=== PATIENT | female | born 1950 | race Caucasian/White ===

== ENCOUNTER 2018-06-09 10:55 | Emergency (ER) | payer MEDICARE, BC ==
[2018-06-09] MEDS ORDERED: Sodium Chloride 0.9% 10 ML Syringe FLUSH PRN (11:28)
--- NOTE | 2018-06-09 12:19 | CR ---
Chest: Portable view of the chest was obtained. Comparison: No previous study. Heart size and mediastinum are within normal limits for portable technique. Lungs are clear. Bony structures are grossly intact. Surgical clips are seen from prior cholecystectomy. Impression: 1. Nothing acute is seen on portable chest x-ray. Diagnostic code #2
--- NOTE | 2018-06-09 13:00 | EDM.PDOC ---
ED HPI GENERAL MEDICAL PROBLEM - General Chief Complaint: Cardiovascular Problem Stated Complaint: SENT BY [facility] DENSON ABNORMAL EKG Time Seen by Provider: 06/09/18 11:07 Source of Information: Reports: Patient History Limitations: Reports: No Limitations - History of Present Illness INITIAL COMMENTS - FREE TEXT/NARRATIVE: The patient presents with palpitations and lightheadedness. She said this started on . She did not feel well and she felt like her heart was pounding fast. She laid down and rested. She felt a little better. She did have some heart burn a few days ago and the lightheadedness has persisted. She denies fever, chills, cough, congestion, runny nose, chest pain, shortness of breath, abdominal pain, nausea or vomiting. She has no history of heart problems. Onset: Gradual Duration: Day(s): (5) Location: Reports: Chest Quality: Reports: Other (Heartburn) Severity: Mild Improves with: Reports: None Worsens with: Reports: None Associated Symptoms: Reports: Chest Pain (Heart burn). Denies: Cough, Fever/ Chills, Headaches, Nausea/Vomiting, Shortness of Breath - Related Data Allergies Allergy/AdvReac Type Severity Reaction Status Date / Time No Known Allergies Allergy Verified 06/09/18 11:13 Home Meds: Home Meds . [No Known Home Meds] 06/09/18 [History] Past Medical History HEENT History: Reports: Cataract, Impaired Vision Gastrointestinal History: Reports: Cholelithiasis [employer] History: Reports: Musculoskeletal History: Reports: Osteoporosis Psychiatric History: Reports: Depression - Past Surgical History HEENT Surgical History: Reports: Cataract Surgery, Oral Surgery GI Surgical History: Reports: Cholecystectomy Female Surgical History: Reports: Hysterectomy, Salpingo-Oophorectomy Social & Family History - Family History Cardiac: Reports: Bypass, ID, Stent Other Cardiac Family History: brother-mother open heart, father young unsure 65 years - Tobacco Use Smoking Status *Q: Former Smoker Packs/Tins Daily: 0.2 Used Tobacco, but Quit: Yes Month/Year Tobacco Last Used: 1959 - Caffeine Use Caffeine Use: Reports: Coffee - Recreational Drug Use Recreational Drug Use: No ED ROS GENERAL - Review of Systems Review Of Systems: See Below Constitutional: Reports: No Symptoms HEENT: Reports: No Symptoms Respiratory: Reports: No Symptoms Cardiovascular: Reports: Chest Pain (Heart burn), Lightheadedness Endocrine: Reports: No Symptoms GI/Abdominal: Reports: No Symptoms ED EXAM, GENERAL - Physical Exam Exam: See Below Exam Limited By: No Limitations General Appearance: Alert, No Apparent Distress Ears: Normal External Exam Nose: Normal Inspection Head: Atraumatic, Normocephalic Neck: Normal Inspection Respiratory/Chest: No Respiratory Distress, Lungs Clear, Normal Breath Sounds Cardiovascular: Regular Rate, Rhythm, No Edema, No Murmur GI/Abdominal: Soft, Non-Tender, No Organomegaly, No Mass Back Exam: Normal Inspection Extremities: Normal Inspection Neurological: Alert, Oriented, No Motor/Sensory Deficits EKG INTERPRETATION EKG Date: 06/09/18 Time: 11:10 Rhythm: NSR Rate (Beats/Min): 63 [place]: Normal P-Wave: Present QRS: Normal ST-T: Normal QT: Normal Course - Vital Signs Last Recorded V/S: Last Vital Signs Temp 96.6 F 06/09/18 11:09 Pulse 66 06/09/18 11:09 Resp 12 06/09/18 11:09 BP 157/74 H 06/09/18 11:09 Pulse Ox 100 06/09/18 11:09 - Orders/Labs/Meds Orders: Active Orders 24 hr Category Date Time Status Cardiac Monitoring [RC] . DIRECTED Care 06/09/18 11:28 Active EKG Documentation Completion [RC] STAT Care 06/09/18 11:29 Active Peripheral IV Care [RC] . DIRECTED Care 06/09/18 11:29 Active Sodium Chloride 0.9% [Saline Flush] Med 06/09/18 11:28 Active 10 ml FLUSH ASDIRECTED PRN Peripheral IV Insertion Adult [OM.PC] Stat Oth 06/09/18 11:28 Ordered Medication Orders Sodium Chloride (Saline Flush) 10 ml FLUSH ASDIRECTED PRN PRN Reason: Keep Vein Open Last Admin: 06/09/18 11:34 Dose: 10 ml Labs: Laboratory Tests 06/09/18 06/09/18 Range/Units 11:10 11:10 WBC 5.83 (3.98-10.04) K/mm3 RBC 4.96 (3.98-5.22) M/mm3 Hgb 13.9 (11.2-15.7) gm/L Hct 42.2 (34.1-44.9) % MCV 85.1 (79.4-94.8) fl MCH 28.0 (25.6-32.2) pg MCHC 32.9 (32.2-35.5) g/dl RDW Std Deviation 45.4 (36.4-46.3) fL Plt Count 294 (182-369) K/mm3 MPV 8.8 L (9.4-12.3) fl Neut % (Auto) 60.4 (34.0-71.1) % Lymph % (Auto) 28.1 (19.3-51.7) % [place] % (Auto) 9.3 (4.7-12.5) % Eos % (Auto) 1.7 (0.7-5.8) Baso % (Auto) 0.5 (0.1-1.2) % Neut # (Auto) 3.52 (1.56-6.13) K/mm3 Lymph # (Auto) 1.64 (1.18-3.74) K/mm3 [place] # (Auto) 0.54 H (0.24-0.36) K/mm3 Eos # (Auto) 0.10 (0.04-0.36) K/mm3 Baso # (Auto) 0.03 (0.01-0.08) K/mm3 Sodium 141 (136-145) mEq/L Potassium 4.6 (3.5-5.1) mEq/L Chloride 108 H (98-107) mEq/L Carbon Dioxide 26 (21-32) mEq/L Anion Gap 11.6 (5-15) BUN 17 (7-18) mg/dL Creatinine 0.8 (0.55-1.02) mg/dL Est Cr Clr Drug Dosing 57.31 mL/min Estimated GFR (MDRD) > 60 (>60) mL/min BUN/Creatinine Ratio 21.3 H (14-18) Glucose 89 (80-115) mg/dL Calcium 8.3 L (8.5-10.1) mg/dL Total Bilirubin 0.5 (0.2-1.0) mg/dL AST 18 (15-37) U/L ALT 26 (14-59) U/L Alkaline Phosphatase 91 (46-116) U/L Troponin I < 0.017 (0.00-0.056) ng/mL Total Protein 7.2 (6.4-8.2) g/dl Albumin 3.8 (3.4-5.0) g/dl Globulin 3.4 gm/dL Albumin/Globulin Ratio 1.1 (1-2) TSH 3rd Generation 2.195 (0.358-3.74) uIU/mL Meds: Medications Generic Name Dose Route Start Last Admin Trade Name Freq PRN Reason Stop Dose Admin Sodium Chloride 10 ml 06/09/18 11:28 06/09/18 11:34 Saline Flush FLUSH 10 ml ASDIRECTED PRN Administration Keep Vein Open - Re-Assessments/Exams Free Text/Narrative Re-Assessment/Exam: 06/09/18 12:59 I ordered an IV saline lock, EKG, CXR, and labs. Her EKG shows a NSR with no acute changes. Her CXR looks good. Her CBC and CMP look good. Her troponin is negative. I have ordered a hoter monitor for 48 hours to see if we can catch any palpitations. Departure - Departure Time of Disposition: 13:00 Disposition: Home, Self-Care 01 Condition: Good Clinical Impression: Palpitations, Lightheadedness Referrals: Gaudencio Quintanilla MD [Primary Care Provider] - Additional Instructions: Drink plenty of fluids. Wear the holter monitor for 48 hours. Follow up with your provider within a week. Please return if you are worse. - My Orders Last 24 Hours: My Active Orders 06/09/18 11:28 Cardiac Monitoring [RC] . DIRECTED Sodium Chloride 0.9% [Saline Flush] 10 ml FLUSH ASDIRECTED PRN Peripheral IV Insertion Adult [OM.PC] Stat 06/09/18 11:29 EKG Documentation Completion [RC] STAT Peripheral IV Care [RC] . DIRECTED - Assessment/Plan Last 24 Hours: My Active Orders 06/09/18 11:28 Cardiac Monitoring [RC] . DIRECTED Sodium Chloride 0.9% [Saline Flush] 10 ml FLUSH ASDIRECTED PRN Peripheral IV Insertion Adult [OM.PC] Stat 06/09/18 11:29 EKG Documentation Completion [RC] STAT Peripheral IV Care [RC] . DIRECTED
== END 2018-06-09 14:00 | disposition home or self-care (01) ==
LOC: JD.ED 10:55
DX: R00.0 Tachycardia, unspecified (principal); R00.2 Palpitations; Z87.891 Personal history of nicotine dependence
CPT/HCPCS: 36415; 71045; 71045-26; 80053; 84443; 84484; 85025; 93005; 93010; 93225; 93226; 99284; 99285-25

== ENCOUNTER 2019-03-18 06:03 | Day surgery (SDC) | payer MEDICARE, BC ==
[~2019-03-18 06:03] MED LIST: Acetaminophen 325 MG Tab PO SCH; Lidocaine 1%/Sod Bicarbonate in NS 8.4% 1 ML Syringe IDERM PRN; Pregabalin 25 MG Cap PO SCH; Sodium Chloride 0.9% 10 ML Syringe FLUSH PRN; oxyCODONE ER 10 MG TAB.ER PO SCH
[2019-03-18] MEDS: Lactated Ringers 1,000 ML IV SCH ×2 (06:30→09:43)
[2019-03-18] MEDS ORDERED: Scopolamine 1.5 MG Transdermal Patch TOP ONE (06:51)
--- NOTE | 2019-03-18 06:57 | PCM.PREANE ---
Preanesthetic Assessment - Anesthesia/Transfusion/Family Hx Anesthesia History: Prior Anesthesia Without Reaction Family History of Anesthesia Reaction: No Transfusion History: No Prior Transfusion(s) - Review of Systems General: No Symptoms, Other (anemia) Pulmonary: No Symptoms Cardiovascular: No Symptoms, Other (HTN) Gastrointestinal: No Symptoms Neurological: Other (vertigo, 2 weeks ago) Other: Reports: Thyroid Problems, Depression - Physical Assessment NPO Status Date: 03/17/19 NPO Status Time: 21:00 Vital Signs: Last Vital Signs Temp 36.2 C 03/18/19 06:10 Pulse 72 03/18/19 06:10 Resp 16 03/18/19 06:10 BP 154/78 H 03/18/19 06:10 Pulse Ox 95 03/18/19 06:10 Weight: 84 kg ASA Class: 2 Mental Status: Alert & Oriented x3 Airway Class: Mallampati = 2 Dentition: Reports: Normal Dentition Thyro-Mental Finger Breadths: 3 Mouth Opening Finger Breadths: 3 ROM/Head Extension: Full Lungs: Clear to Auscultation, Normal Respiratory Effort Cardiovascular: Regular Rate, Regular Rhythm - Lab Values: Laboratory Last Values MRSA (PCR) Negative 03/06/19 10:50 - Allergies Allergies/Adverse Reactions: Allergies Allergy/AdvReac Type Severity Reaction Status Date / Time No Known Allergies Allergy Verified 03/17/19 10:47 - Blood Blood Available: No Product(s) Available: None - Anesthesia Plan Pre-Op Medication Ordered: None - Acknowledgements Anesthesia Type Planned: Spinal Pt an Appropriate Candidate for the Planned Anesthesia: Yes Alternatives and Risks of Anesthesia Discussed w Pt/Guardian: Yes Pt/Guardian Understands and Agrees with Anesthesia Plan: Yes PreAnesthesia Questionnaire HEENT History: Reports: Cataract, Hard of Hearing, Impaired Vision, Other (See Below) Other HEENT History: hearing loss, has glasses and hearing aids Cardiovascular History: Reports: High Cholesterol, Hypertension Respiratory History: Reports: None Gastrointestinal History: Reports: Cholelithiasis, Colon Polyp Genitourinary History: Reports: Other (See Below) Other Genitourinary History: bladder cystocele, MACHINIST SET UP History: Reports: Musculoskeletal History: Reports: Osteoarthritis, Osteoporosis Neurological History: Reports: Vertigo Psychiatric History: Reports: Depression Endocrine/Metabolic History: Reports: Hypothyroidism Hematologic History: Reports: Anemia Immunologic History: Reports: None Oncologic (Cancer) History: Reports: None Dermatologic History: Reports: None - Past Surgical History Head Surgeries/Procedures: Reports: None HEENT Surgical History: Reports: Cataract Surgery, Oral Surgery Cardiovascular Surgical History: Reports: None Respiratory Surgical History: Reports: None GI Surgical History: Reports: Bariatric Procedure, Cholecystectomy, Colonoscopy Female Surgical History: Reports: Breast Reconstruction, Hysterectomy, Salpingo-Oophorectomy Endocrine Surgical History: Reports: None Neurological Surgical History: Reports: None Musculoskeletal Surgical History: Reports: None Oncologic Surgical History: Reports: None Dermatological Surgical History: Reports: None - SUBSTANCE USE Smoking Status *Q: Never Smoker Recreational Drug Use History: No - HOME MEDS Home Medications: Home Meds Cholecalciferol (Vitamin D3) [Vitamin D3] 5,000 unit OP DAILY 03/17/19 [History] Levothyroxine [Synthroid] 50 mcg PO DAILY 03/17/19 [History] Losartan Potassium 50 mg PO DAILY 03/17/19 [History] Sertraline HCl 100 mg PO DAILY 03/17/19 [History] - CURRENT (IN HOUSE) MEDS Current Meds: Current Medications Acetaminophen (Tylenol) 975 mg PO ONETIME MIGDALIA Stop: 03/18/19 12:00 Last Admin: 03/18/19 06:20 Dose: 975 mg Lactated Ringer's (Ringers, Lactated) 1,000 mls @ 125 mls/hr IV ASDIRECTED MIGDALIA Stop: 03/18/19 23:00 Lidocaine/Sodium Bicarbonate (Buffered Lidocaine 1% In Ns 8.4%) 0.25 ml IDERM ONETIME PRN PRN Reason: Prior to IV Start Stop: 03/18/19 18:00 Oxycodone HCl (Oxycontin) 10 mg PO ONETIME MIGDALIA Stop: 03/18/19 12:00 Last Admin: 03/18/19 06:20 Dose: 10 mg Pregabalin (Lyrica) 50 mg PO ONETIME MIGDALIA Stop: 03/18/19 12:00 Last Admin: 03/18/19 06:20 Dose: 50 mg Scopolamine (Transderm-Scop) 1.5 mg TOP ONETIME ONE Stop: 03/18/19 06:52 Sodium Chloride (Saline Flush) 10 ml FLUSH ASDIRECTED PRN PRN Reason: Keep Vein Open Stop: 03/18/19 18:00
[2019-03-18] MEDS ORDERED: Cyclobenzaprine 10 MG Tab PO PRN (07:06)
[2019-03-18] MEDS ORDERED: ceFAZolin 1 GM Vial ONE (07:06)
[2019-03-18] MEDS ORDERED: fentaNYL 100 MCG/2 ML SDV ONE (07:06)
[2019-03-18] MEDS ORDERED: Midazolam 1 MG/ML 2 ML SDV ONE (07:06)
[2019-03-18] MEDS ORDERED: Propofol 200 MG/20 ML SDV ONE (07:06)
[2019-03-18] MEDS ORDERED: Ondansetron 4 MG/2 ML SDV IVPUSH PRN ×2 (07:08→09:03)
[2019-03-18] MEDS ORDERED: Sennosides 8.6 MG Tab PO PRN (07:08)
[2019-03-18] MEDS ORDERED: Bisacodyl 5 MG Tab PO PRN (07:08)
[2019-03-18] MEDS ORDERED: Magnesium Hydroxide 400 MG/5 ML Susp 30 ML Cup PO PRN (07:08)
[2019-03-18] MEDS ORDERED: Naloxone 0.4 MG/ML SDV IVPUSH PRN (07:08)
[2019-03-18] MEDS ORDERED: Morphine 2 MG/ML Syringe IVPUSH PRN (07:08)
[2019-03-18] MEDS ORDERED: Ropivacaine 0.5% 5 MG/ML 30 ML SDV ONE (07:45)
[2019-03-18] MEDS ORDERED: EPINEPHrine 1 MG/1 ML Amp ONE (07:45)
[2019-03-18] MEDS ORDERED: ePHEDrine/Normal Saline 25 MG/5 ML Syringe ONE (08:02)
[2019-03-18] MEDS ORDERED: Lactated Ringers 1,000 ML ONE (08:03)
[2019-03-18] MEDS ORDERED: Phenylephrine/Normal Saline 100 MCG/ML 10 ML Syringe ONE (08:04)
[2019-03-18] MEDS: ceFAZolin 1 GM Vial ONE ×2 (08:17→08:23)
[2019-03-18] MEDS: Iodine/Sodium Iodide 2% Tincture 30 ML Bottle ONE ×2 (08:17→08:20)
[2019-03-18] MEDS: Morphine 8 MG, EPINEPHrine 0.3 MG, Cefuroxime 750 MG, Ketorolac 30 MG, Sodium Chloride ... ONE ×15 (08:19→13:36)
[2019-03-18] MEDS: Bupivacaine 0.25% 10 ML SDV ONE ×4 (08:20→08:51)
[2019-03-18] MEDS: Vancomycin 1 GM SDV ONE ×2 (08:21→08:30)
[2019-03-18] MEDS: Triamcinolone Acetonide 40 MG/ML 1 ML MDV ONE ×2 (08:21→08:51)
[2019-03-18] MEDS ORDERED: fentaNYL 100 MCG/2 ML SDV IVPUSH PRN (09:03)
--- NOTE | 2019-03-18 09:03 | PCM.POSTAN ---
POST ANESTHESIA ASSESSMENT - MENTAL STATUS Mental Status: Alert, Oriented - VITAL SIGNS Vital Signs: Last Vital Signs Temp 36.2 C 03/18/19 06:10 Pulse 72 03/18/19 06:10 Resp 16 03/18/19 06:10 BP 154/78 H 03/18/19 06:10 Pulse Ox 95 03/18/19 06:10 - RESPIRATORY Respiratory Status: Respiratory Rate WNL, Airway Patent, O2 Saturation Stable, Supplemental Oxygen - CARDIOVASCULAR CV Status: Pulse Rate WNL, Blood Pressure Stable - GASTROINTESTINAL GI Status: No Symptoms - PAIN Pain Score: 0 - POST OP HYDRATION Hydration Status: Adequate & Stable
--- NOTE | 2019-03-18 09:22 | PCM.SN ---
- Free Text/Narrative Note: Right selective femoral nerve block at the adductor canal for post-procedure pain control under US guidance requested by Dr. Dooley. Date:03/18/19 Time Out: 903 Start: 904 End: 910 Chart reviewed. Consent signed. Questions answered. Appropriate monitors applied. Time out performed. Right mid-shaft femur identified with ultrasound, scanning medially of femur, the femoral artery in the adductor canal visualized , and the femoral nerve located laterally to the artery. The skin was prepped lateral to the ultrasound probe with chlorahexadine times two. The 21ga 4 insulated block needle was inserted under direct ultrasound guidance into the adductor canal. With first aspiration blood noted. Needle repositioned. 25mL of 0.5% ropivacaine with 1:200,000 epinephrine was injected circumferentially around the nerve with intermittent negative aspiration noted. Patient tolerated the procedure well. Sterile technique noted along with sterile gloves , mask, and sterile probe cover. See picture on progress note and vital signs on nurses notes. Block completed in PACU. Ted De León CRNA
--- NOTE | 2019-03-18 09:54 | CR ---
Right knee: AP and lateral views of the right knee were obtained. Comparison: No previous knee study. Knee prosthesis is seen. Components are aligned. Underlying bony structures are intact. Soft tissue air is noted from the surgical procedure. Impression: 1. Satisfactory radiographic appearance of recently placed right knee prosthesis. Diagnostic code #2
[2019-03-18] MEDS: Acetaminophen/oxyCODONE 325-5 MG Tab PO PRN ×3 (13:50→22:57)
[2019-03-18] MEDS: ceFAZolin 2 GM in Premix Bag 1 BAG IV SCH ×2 (14:00→22:54)
[2019-03-18] MEDS: Famotidine 20 MG Tab PO SCH (20:54)
[2019-03-18] MEDS: Docusate Sodium 100 MG Cap PO SCH (20:54)
[2019-03-18] MEDS: Ketorolac 15 MG/ML SDV IVPUSH PRN (22:55)
[2019-03-19] MEDS ORDERED: Levothyroxine 50 MCG Tab PO SCH (06:00)
[2019-03-19] MEDS: Ketorolac 15 MG/ML SDV IVPUSH PRN (06:03)
[2019-03-19] MEDS: Acetaminophen/oxyCODONE 325-5 MG Tab PO PRN ×2 (06:04→12:26)
[2019-03-19] MEDS: ceFAZolin 2 GM in Premix Bag 1 BAG IV SCH (06:05)
[2019-03-19] MEDS: Famotidine 20 MG Tab PO SCH (08:41)
[2019-03-19] MEDS: Docusate Sodium 100 MG Cap PO SCH (08:41)
[2019-03-19] MEDS ORDERED: Aspirin 325 MG Tab.EC PO SCH (09:00)
[2019-03-19] MEDS ORDERED: Sertraline 50 MG Tab PO SCH (09:00)
[2019-03-19] MEDS ORDERED: Cholecalciferol (Vitamin D3) 5,000 UNIT Tab PO SCH (09:00)
[2019-03-19] MEDS ORDERED: Losartan 25 MG Tab PO SCH (09:00)
--- NOTE | 2019-03-19 14:00 | PCM48HPAN ---
Post Anesthesia Note - EVALUATION WITHIN 48HRS OF ANESTHETIC Vital Signs in Normal Range: Yes Patient Participated in Evaluation: Yes Respiratory Function Stable: Yes Airway Patent: Yes Cardiovascular Function Stable: Yes Hydration Status Stable: Yes Pain Control Satisfactory: Yes Nausea and Vomiting Control Satisfactory: Yes Mental Status Recovered: Yes Vital Signs: Last Vital Signs Temp 36.6 C 03/19/19 08:39 Pulse 65 03/19/19 09:18 Resp 14 03/19/19 08:39 BP 151/93 H 03/19/19 08:42 Pulse Ox 95 03/19/19 09:18 - COMMENTS/OBSERVATIONS Free Text/Narrative:: Late entry: patient discharged home from extended floor recovery.
--- NOTE | 2019-03-20 10:23 | PCM.SURGPN ---
- General Info Date of Service: 03/19/19 Functional Status: Reports: Pain Controlled, Tolerating Diet, Ambulating, Urinating, Incentive Spirometry - Review of Systems Musculoskeletal: Reports: Other (The pt states she did well with therapies.) - Patient Data Vitals - Most Recent: Last Vital Signs Temp 97.9 F 03/19/19 08:39 Pulse 65 03/19/19 09:18 Resp 14 03/19/19 08:39 BP 151/93 H 03/19/19 08:42 Pulse Ox 95 03/19/19 09:18 Weight - Most Recent: 185 lb 3.013 oz Med Orders - Current: Current Medications Discontinued Medications Acetaminophen (Tylenol) 975 mg PO ONETIME MIGDALIA Stop: 03/18/19 12:00 Last Admin: 03/18/19 06:20 Dose: 975 mg Aspirin (Ecotrin) 325 mg PO BID [facility] Last Admin: 03/19/19 08:41 Dose: 325 mg Bisacodyl (Dulcolax) 5 mg PO DAILY PRN PRN Reason: Constipation Bupivacaine HCl (Sensorcaine-Mpf 0.25%) Confirm Administered Dose 30 ml .ROUTE .STK-MED ONE Stop: 03/18/19 07:07 Last Admin: 03/18/19 08:51 Dose: 4 ml Cefazolin Sodium (Ancef) Confirm Administered Dose 2 gm .ROUTE .STK-MED ONE Stop: 03/18/19 07:07 Last Admin: 03/18/19 08:23 Dose: 2 gm Cefazolin Sodium (Ancef) Confirm Administered Dose 2 gm .ROUTE .STK-MED ONE Stop: 03/18/19 07:07 Cholecalciferol (Vitamin D3) 5,000 unit PO DAILY [facility] Last Admin: 03/19/19 08:42 Dose: 5,000 unit Morphine Sulfate 8 mg/Epinephrine HCl 0.3 mg/Cefuroxime Sodium 750 mg/Ketorolac Tromethamine 30 mg/Sodium Chloride 27.9 ml 0 mg .XX ONETIME ONE Stop: 03/18/19 08:31 Last Admin: 03/18/19 13:36 Dose: Not Given Cyclobenzaprine HCl (Flexeril) 10 mg PO TID PRN PRN Reason: Spasms Last Admin: 03/19/19 08:41 Dose: 10 mg Docusate Sodium (Colace) 100 mg PO BID [facility] Last Admin: 03/19/19 08:41 Dose: 100 mg Ephedrine Sulfate (Ephedrine In Ns) Confirm Administered Dose 25 mg .ROUTE .STK- MED ONE Stop: 03/18/19 08:03 Epinephrine HCl (Adrenalin) Confirm Administered Dose 1 mg .ROUTE .STK-MED ONE Stop: 03/18/19 07:46 Famotidine (Pepcid) 20 mg PO Q12H [facility] Last Admin: 03/19/19 08:41 Dose: 20 mg Fentanyl (Sublimaze) Confirm Administered Dose 100 mcg .ROUTE .STK-MED ONE Stop: 03/18/19 07:07 Fentanyl (Sublimaze) 50 mcg IVPUSH Q5M PRN PRN Reason: pain Stop: 03/18/19 12:00 Lactated Ringer's (Ringers, Lactated) 1,000 mls @ 125 mls/hr IV ASDIRECTED [facility] Stop: 03/18/19 23:00 Last Admin: 03/18/19 09:43 Dose: 125 mls/hr Cefazolin Sodium/Dextrose 2 gm (/ Premix) 50 mls @ 100 mls/hr IV Q8H [facility] Stop: 03/19/19 07:29 Last Admin: 03/19/19 06:05 Dose: 100 mls/hr Lactated Ringer's (Ringers, Lactated) Confirm Administered Dose 1,000 mls @ as directed .ROUTE .STK-MED ONE Stop: 03/18/19 08:04 Iodine (Iodine 2% Mild Tincture) Confirm Administered Dose 30 ml .ROUTE .STK- MED ONE Stop: 03/18/19 07:07 Last Admin: 03/18/19 08:20 Dose: 18 ml Ketorolac Tromethamine (Toradol) 15 mg IVPUSH Q6H PRN PRN Reason: Pain Last Admin: 03/19/19 06:03 Dose: 15 mg Levothyroxine Sodium (Synthroid) 50 mcg PO ACBREAKFAST [facility] Last Admin: 03/19/19 05:40 Dose: 50 mcg Lidocaine/Sodium Bicarbonate (Buffered Lidocaine 1% In Ns 8.4%) 0.25 ml IDERM ONETIME PRN PRN Reason: Prior to IV Start Stop: 03/18/19 18:00 Last Admin: 03/18/19 06:29 Dose: 0.25 ml Losartan Potassium (Cozaar) 50 mg PO DAILY [facility] Last Admin: 03/19/19 08:42 Dose: 50 mg Magnesium Hydroxide (Milk Of Magnesia) 30 ml PO BID PRN PRN Reason: Constipation Midazolam HCl (Versed 1 Mg/Ml) Confirm Administered Dose 2 mg .ROUTE .STK-MED ONE Stop: 03/18/19 07:07 Morphine Sulfate (Morphine) 2 mg IVPUSH Q2H PRN PRN Reason: Breakthrough Pain Naloxone HCl (Narcan) 0.1 mg IVPUSH Q5M PRN PRN Reason: Oversedation Ondansetron HCl (Zofran) 4 mg IVPUSH Q6H PRN PRN Reason: Nausea/Vomiting Ondansetron HCl (Zofran) 4 mg IVPUSH ONETIME PRN PRN Reason: Nausea/Vomiting Stop: 03/18/19 12:00 Oxycodone HCl (Oxycontin) 10 mg PO ONETIME MIGDALIA Stop: 03/18/19 12:00 Last Admin: 03/18/19 06:20 Dose: 10 mg Oxycodone/Acetaminophen (Percocet 325-5 Mg) 1 - 2 tab PO Q4H PRN PRN Reason: Pain Last Admin: 03/19/19 12:26 Dose: 2 tab Phenylephrine HCl (Phenylephrine In Ns 100 Mcg/Ml) Confirm Administered Dose 1 mg .ROUTE .STK-MED ONE Stop: 03/18/19 08:05 Pregabalin (Lyrica) 50 mg PO ONETIME MIGDALIA Stop: 03/18/19 12:00 Last Admin: 03/18/19 06:20 Dose: 50 mg Propofol (Diprivan 20 Ml) Confirm Administered Dose 400 mg .ROUTE .STK-MED ONE Stop: 03/18/19 07:07 Ropivacaine (Naropin 0.5%) Confirm Administered Dose 30 ml .ROUTE .STK-MED ONE Stop: 03/18/19 07:46 Scopolamine (Transderm-Scop) 1.5 mg TOP ONETIME ONE Stop: 03/18/19 06:52 Last Admin: 03/18/19 07:03 Dose: 1.5 mg Senna (Senna) 8.6 mg PO BID PRN PRN Reason: Constipation Sertraline HCl (Zoloft) 100 mg PO DAILY [facility] Last Admin: 03/19/19 08:41 Dose: 100 mg Sodium Chloride (Saline Flush) 10 ml FLUSH ASDIRECTED PRN PRN Reason: Keep Vein Open Stop: 03/18/19 18:00 Tranexamic Acid (Cyklokapron) Confirm Administered Dose 1,000 mg .ROUTE .STK- MED ONE Stop: 03/18/19 07:06 Last Admin: 03/18/19 08:34 Dose: 1,000 mg Triamcinolone Acetonide (Kenalog-40) Confirm Administered Dose 80 mg .ROUTE .STK -MED ONE Stop: 03/18/19 07:06 Last Admin: 03/18/19 08:51 Dose: 80 mg Vancomycin HCl (Vancomycin) Confirm Administered Dose 1 gm .ROUTE .STK-MED ONE Stop: 03/18/19 07:06 Last Admin: 03/18/19 08:30 Dose: 1 gm - Exam Wound/Incisions: Dressing Dry and Intact General: Alert, Cooperative, No Acute Distress Lungs: Normal Respiratory Effort Extremities: Other (NVS intact for BLE. Luciana's negative.) - Problem List Review Problem List Initiated/Reviewed/Updated: Yes - Assessment Assessment (Free Text/Narrative):: POD#1 - right TKA - Plan Plan (Free Text/Narrative):: 1. Hgb 10.4. 2. Pt has met inpt therapy goals. 3. Discharge to home today. 4. Elevated LFTs and pt has been scheduled for f/u with PCP. 5. 325mg ASA PO BID, frequent mobility, TEDs. The pt's case was discussed with Dr. Dooley.
--- NOTE | 2019-03-20 10:26 | PCM.DCSUM1 ---
Discharge Summary - Hospital Course Brief History: Ann is a 68 yo female who underwent left TKA with Dr. Dooley on 03-18-2019. The procedure was completed under spinal anesthesia with MAC. The pt received a post-op adductor canal block. The pt tolerated the procedure well and was admitted to the Medical-Surgical Unit. The pt's Hospital course was remarkable for elevated LFTs. The pt's Hgb on POD#1 was 10.4. On POD#1, 325mg ASA BID was initiated for VTE prophylaxis. SCDs and TEDs were also ordered. A Mepilex dressing was placed at the incision site at the time of surgery and remained clean and dry. The pt participated in P.T. and O.T. and progressed well. The pt was allowed to WBAT. On POD#1, the pt was deemed appropriate to discharge to home with her . The pt will follow-up with her PCP for monitoring of LFTs. - Discharge Data Discharge Date: 03/19/19 Discharge Disposition: Home, Self-Care 01 Condition: Good - Referral to Home Health Primary Care Physician: Gaudencio Quintanilla MD - Patient Summary/Data Consults: Consultations 03/18/19 07:06 OT Evaluation and Treatment [CONS] Routine PT Evaluation and Treatment [CONS] Routine - Patient Instructions Diet: Usual Diet as Tolerated Activity: Apply Ice, As Tolerated, Elevate Extremity, Full Weight Bearing Driving: Do Not Drive Showering/Bathing: May Shower Wound/Incision Care: Keep Operative Site/Wound Site Clean and Dry, Do NOT Change Dressing Notify Provider of: Fever, Increased Pain, Swelling and Redness, Drainage, Nausea and/or Vomiting Other/Special Instructions: Please get up and moving around EVERY HOUR while awake. This helps to prevent blood clots. Please use your walker and have help with mobility as needed. Take a short walk in your home every hour while awake. Please take 325mg Aspirin TWICE daily. The aspirin is being used for blood clot prevention and not for pain management so please do not miss a dose of the medication. You could use a medication like Pepcid and a medication like Prilosec or Nexium to protect your stomach while you are using the aspirin. At home, please complete the exercises that you learned during the Hospital stay. Schedule for physical therapy. Use the pain medication as needed. The medication may cause drowsiness and constipation. Contact your primary care provider for instructions if you are constipated. You may use a stool softener like docusate sodium or Colace 100mg twice daily and/or a laxative like Miralax daily for constipation. Increase your water and fiber intake while you are using the pain medication. Discontinue use of the pain medication as soon as able. Please do not use other medications that may cause drowsiness (other pain medications, anxiety pills, cold medications, sleeping pills, etc) while using the prescription pain medication. Do not use alcohol while using the pain medication. You may use acetaminophen or Tylenol for pain management, however, please ensure you are not using over 4000 mg or 4 grams of acetaminophen per day from all sources. Your pain medication has 325mg of acetaminophen per tablet. At this time, please do not use ibuprofen (Motrin, Advil) or naproxen (Aleve) for pain management as you are using the aspirin. When the aspirin course is completed in 4 to 6 weeks, you could use ibuprofen or naproxen for pain management (if this is allowed by your primary care provider). Wear the CAMI hose during the day and you may remove these at night. Elevate the limb to decrease swelling. Place ice to the area often. Place a towel between your skin and the blue pad. Use the incentive spirometer often. Take deep breaths throughout the day. Please keep the dressing in place until follow-up. Notify the Clinic if the dressing becomes saturated. Increase your protein intake while you are healing. If you have diabetes, please closely monitor your blood sugars and notify your primary care provider with abnormal values. Elevated blood sugars increases the risk of infection. Please have follow-up with your primary care provider as your liver tests were elevated with the lab testing on 03-19-2019. This is sometimes seen after surgery, however, please follow-up with your primary provider to ensure your lab test results improve. Call the Clinic with questions or concerns - [phone]. - Discharge Plan *PRESCRIPTION DRUG MONITORING PROGRAM REVIEWED*: No *COPY OF PRESCRIPTION DRUG MONITORING REPORT IN PATIENT DRAKE: No Prescriptions/Med Rec: Acetaminophen/oxyCODONE [Percocet 325-5 MG] 1 - 2 each PO Q4HR PRN #60 tab PRN Reason: Pain Aspirin [Ecotrin EC] 325 mg PO BID #84 tab.ec Cyclobenzaprine [Flexeril] 5 mg PO BID PRN #20 tablet PRN Reason: Spasms Home Medications: Home Meds Cholecalciferol (Vitamin D3) [Vitamin D3] 5,000 unit PO DAILY 03/17/19 [History] Levothyroxine [Synthroid] 50 mcg PO DAILY 03/17/19 [History] Losartan Potassium 50 mg PO DAILY 03/17/19 [History] Sertraline HCl 100 mg PO DAILY 03/17/19 [History] Acetaminophen/oxyCODONE [Percocet 325-5 MG] 1 - 2 each PO Q4HR PRN #60 tab 03/19 [Rx] Aspirin [Ecotrin EC] 325 mg PO BID #84 tab.ec 03/19/19 [Rx] Bisacodyl [Dulcolax] 5 mg PO DAILY PRN tablet 03/19/19 [Rx] Cyclobenzaprine [Flexeril] 5 mg PO BID PRN #20 tablet 03/19/19 [Rx] Docusate Sodium [Colace] 100 mg PO BID cap 03/19/19 [Rx] Famotidine [Pepcid] 20 mg PO Q12H tablet 03/19/19 [Rx] Magnesium Hydroxide [Milk of Magnesia] 30 ml PO BID PRN cup 03/19/19 [Rx] Sennosides [Senna] 8.6 mg PO BID PRN tablet 03/19/19 [Rx] Patient Handouts: Total Knee Replacement, [id number] Referrals: Fior Ulrich PA-C [Physician Equal Employment Opportunity Officer] - 03/24/19 9:45 am (03/24/19829 - Therapy appointment with Babak Julian PT 03/24 945 with Fior 04/01 200 pm with Fior 04/29 1230 pm with Fior) Gaudencio Quintanilla MD [Primary Care Provider] - 03/24/19 3:15 pm - Discharge Summary/Plan Comment DC Time >30 min.: No - Patient Data Vitals - Most Recent: Last Vital Signs Temp 97.9 F 03/19/19 08:39 Pulse 65 03/19/19 09:18 Resp 14 03/19/19 08:39 BP 151/93 H 03/19/19 08:42 Pulse Ox 95 03/19/19 09:18 Weight - Most Recent: 185 lb 3.013 oz Med Orders - Current: Current Medications Discontinued Medications Acetaminophen (Tylenol) 975 mg PO ONETIME [facility] Stop: 03/18/19 12:00 Last Admin: 03/18/19 06:20 Dose: 975 mg Aspirin (Ecotrin) 325 mg PO BID [facility] Last Admin: 03/19/19 08:41 Dose: 325 mg Bisacodyl (Dulcolax) 5 mg PO DAILY PRN PRN Reason: Constipation Bupivacaine HCl (Sensorcaine-Mpf 0.25%) Confirm Administered Dose 30 ml .ROUTE .STK-MED ONE Stop: 03/18/19 07:07 Last Admin: 03/18/19 08:51 Dose: 4 ml Cefazolin Sodium (Ancef) Confirm Administered Dose 2 gm .ROUTE .STK-MED ONE Stop: 03/18/19 07:07 Last Admin: 03/18/19 08:23 Dose: 2 gm Cefazolin Sodium (Ancef) Confirm Administered Dose 2 gm .ROUTE .STK-MED ONE Stop: 03/18/19 07:07 Cholecalciferol (Vitamin D3) 5,000 unit PO DAILY [facility] Last Admin: 03/19/19 08:42 Dose: 5,000 unit Morphine Sulfate 8 mg/Epinephrine HCl 0.3 mg/Cefuroxime Sodium 750 mg/Ketorolac Tromethamine 30 mg/Sodium Chloride 27.9 ml 0 mg .XX ONETIME ONE Stop: 03/18/19 08:31 Last Admin: 03/18/19 13:36 Dose: Not Given Cyclobenzaprine HCl (Flexeril) 10 mg PO TID PRN PRN Reason: Spasms Last Admin: 03/19/19 08:41 Dose: 10 mg Docusate Sodium (Colace) 100 mg PO BID [facility] Last Admin: 03/19/19 08:41 Dose: 100 mg Ephedrine Sulfate (Ephedrine In Ns) Confirm Administered Dose 25 mg .ROUTE .STK- MED ONE Stop: 03/18/19 08:03 Epinephrine HCl (Adrenalin) Confirm Administered Dose 1 mg .ROUTE .STK-MED ONE Stop: 03/18/19 07:46 Famotidine (Pepcid) 20 mg PO Q12H [facility] Last Admin: 03/19/19 08:41 Dose: 20 mg Fentanyl (Sublimaze) Confirm Administered Dose 100 mcg .ROUTE .STK-MED ONE Stop: 03/18/19 07:07 Fentanyl (Sublimaze) 50 mcg IVPUSH Q5M PRN PRN Reason: pain Stop: 03/18/19 12:00 Lactated Ringer's (Ringers, Lactated) 1,000 mls @ 125 mls/hr IV ASDIRECTED [facility] Stop: 03/18/19 23:00 Last Admin: 03/18/19 09:43 Dose: 125 mls/hr Cefazolin Sodium/Dextrose 2 gm (/ Premix) 50 mls @ 100 mls/hr IV Q8H [facility] Stop: 03/19/19 07:29 Last Admin: 03/19/19 06:05 Dose: 100 mls/hr Lactated Ringer's (Ringers, Lactated) Confirm Administered Dose 1,000 mls @ as directed .ROUTE .STK-MED ONE Stop: 03/18/19 08:04 Iodine (Iodine 2% Mild Tincture) Confirm Administered Dose 30 ml .ROUTE .STK- MED ONE Stop: 03/18/19 07:07 Last Admin: 03/18/19 08:20 Dose: 18 ml Ketorolac Tromethamine (Toradol) 15 mg IVPUSH Q6H PRN PRN Reason: Pain Last Admin: 03/19/19 06:03 Dose: 15 mg Levothyroxine Sodium (Synthroid) 50 mcg PO ACBREAKFAST [facility] Last Admin: 03/19/19 05:40 Dose: 50 mcg Lidocaine/Sodium Bicarbonate (Buffered Lidocaine 1% In Ns 8.4%) 0.25 ml IDERM ONETIME PRN PRN Reason: Prior to IV Start Stop: 03/18/19 18:00 Last Admin: 03/18/19 06:29 Dose: 0.25 ml Losartan Potassium (Cozaar) 50 mg PO DAILY [facility] Last Admin: 03/19/19 08:42 Dose: 50 mg Magnesium Hydroxide (Milk Of Magnesia) 30 ml PO BID PRN PRN Reason: Constipation Midazolam HCl (Versed 1 Mg/Ml) Confirm Administered Dose 2 mg .ROUTE .STK-MED ONE Stop: 03/18/19 07:07 Morphine Sulfate (Morphine) 2 mg IVPUSH Q2H PRN PRN Reason: Breakthrough Pain Naloxone HCl (Narcan) 0.1 mg IVPUSH Q5M PRN PRN Reason: Oversedation Ondansetron HCl (Zofran) 4 mg IVPUSH Q6H PRN PRN Reason: Nausea/Vomiting Ondansetron HCl (Zofran) 4 mg IVPUSH ONETIME PRN PRN Reason: Nausea/Vomiting Stop: 03/18/19 12:00 Oxycodone HCl (Oxycontin) 10 mg PO ONETIME [facility] Stop: 03/18/19 12:00 Last Admin: 03/18/19 06:20 Dose: 10 mg Oxycodone/Acetaminophen (Percocet 325-5 Mg) 1 - 2 tab PO Q4H PRN PRN Reason: Pain Last Admin: 03/19/19 12:26 Dose: 2 tab Phenylephrine HCl (Phenylephrine In Ns 100 Mcg/Ml) Confirm Administered Dose 1 mg .ROUTE .STK-MED ONE Stop: 03/18/19 08:05 Pregabalin (Lyrica) 50 mg PO ONETIME [facility] Stop: 03/18/19 12:00 Last Admin: 03/18/19 06:20 Dose: 50 mg Propofol (Diprivan 20 Ml) Confirm Administered Dose 400 mg .ROUTE .STK-MED ONE Stop: 03/18/19 07:07 Ropivacaine (Naropin 0.5%) Confirm Administered Dose 30 ml .ROUTE .STK-MED ONE Stop: 03/18/19 07:46 Scopolamine (Transderm-Scop) 1.5 mg TOP ONETIME ONE Stop: 03/18/19 06:52 Last Admin: 03/18/19 07:03 Dose: 1.5 mg Senna (Senna) 8.6 mg PO BID PRN PRN Reason: Constipation Sertraline HCl (Zoloft) 100 mg PO DAILY [facility] Last Admin: 03/19/19 08:41 Dose: 100 mg Sodium Chloride (Saline Flush) 10 ml FLUSH ASDIRECTED PRN PRN Reason: Keep Vein Open Stop: 03/18/19 18:00 Tranexamic Acid (Cyklokapron) Confirm Administered Dose 1,000 mg .ROUTE .STK- MED ONE Stop: 03/18/19 07:06 Last Admin: 03/18/19 08:34 Dose: 1,000 mg Triamcinolone Acetonide (Kenalog-40) Confirm Administered Dose 80 mg .ROUTE .STK -MED ONE Stop: 03/18/19 07:06 Last Admin: 03/18/19 08:51 Dose: 80 mg Vancomycin HCl (Vancomycin) Confirm Administered Dose 1 gm .ROUTE .[facility] ONE Stop: 03/18/19 07:06 Last Admin: 03/18/19 08:30 Dose: 1 gm
--- NOTE | 2019-03-23 08:51 | PCM.OPNOTE ---
- General Post-Op/Procedure Note Date of Surgery/Procedure: 03/18/19 Operative Procedure(s): right total knee with left knee corticosteroid injection Pre Op Diagnosis: bilateral knee osteoarthrosis Post-Op Diagnosis: Same Anesthesia Technique: Local, MAC, Spinal Primary Surgeon: Shane Dooley Anesthesia Provider: Miriam Aguilar Curtain Feller Blindstitch: Fior Ulrich Curtain Feller Blindstitch: Mallory Casarez EBL in mLs: 200 Complications: None Condition: Good Free Text/Narrative:: size 5 femur size 4 tibia 9mm 29x9
--- NOTE | 2019-03-23 09:16 | OR ---
DATE OF OPERATION: 03/18/2019 SURGEON: Shane Dooley MD OPERATION PERFORMED: Right total knee arthroplasty with left knee corticosteroid injection. PREOPERATIVE DIAGNOSIS: Bilateral knee osteoarthrosis. POSTOPERATIVE DIAGNOSIS: Bilateral knee osteoarthrosis. ANESTHESIA: Local MAC with spinal. ANESTHESIA PROVIDER: Miriam Aguilar. ASSISTANTS: Fior Ulrich PA-C, and Mallory Casarez LPN. ESTIMATED BLOOD LOSS: 200 mL. COMPLICATIONS: None. CONDITION: Stable. IMPLANTS: 1. Maximino size 5 press-fit CR femur. 2. [place] size 4 press-fit tibial base plate. 3. [place] size 4 9 mm CS polyethylene insert. 4. Maximino size 29 x 9 mm press-fit asymmetric patella. DESCRIPTION OF PROCEDURE: The patient was identified in the preop holding area. Proper site was marked and identified by the surgeon. The patient was taken back to the operating theater. After adequate anesthesia, the patient's right lower extremity had a nonsterile tourniquet applied and it was sterilely prepped and draped in the usual sterile fashion. OR time-out was performed. The patient received 2 g IV Ancef. At this time, the right lower extremity was exsanguinated. Tourniquet was insufflated to 300 mmHg. Standard medial parapatellar incision was made. Medial parapatellar arthrotomy was created. Deep fibers of the MCL were raised and anterior fat pad was resected. At this time, attention was turned to the patella. Patella measured a 21, it was resected to a 13 for a 29 x 9 mm patella. Drill holes were then drilled and found to be in adequate position. The drill was then drilled in the distal femur and the intramedullary distal femoral cutting guide was then placed. 8 mm was resected off the distal femur and was found to be an adequate resection. Sizing guide was placed. It was found to be a size 5 press-fit CR femur that was shown on the implant record at the beginning of this dictation. The drill holes were drilled for the epicondylar axis using Whitesides line and epicondyles as reference. At this time, the 4-in-1 cutting block was placed. An anterior posterior and anterior and posterior chamfer cuts were then completed. Attention was turned to the tibia. The posterior medial lateral retractors were placed. The extramedullary tibial guide was placed. It was placed in the old footprint of the ACL. It was aligned with the center of the ankle and 0 degrees of slope, 9 mm was then resected off the unaffected side. There was found to be an acceptable reduction. At this time, posterior osteophytes were removed along with medial and lateral meniscus. A trial implant was placed with a correct sized tibia that was mentioned at the beginning of the dictation. A Maximino size 4 9 mm CS polyethylene insert was then placed. The patient's knee was brought through range of motion. The patella was tracking centrally and was stable to varus and valgus stress. Alignment was found to be roughly at 0 degrees. The tibia was stamped and drilled in proper rotation. The universal tibial base plate was impacted in place. Next, the [place] size 5 press-fit CR femur impacted into place and the [place] size 4 9 mm CS polyethylene insert was placed. The patient's knee was brought into full extension. The patella was then press-fit in place at this time. Tourniquet was deflated. One liter dilute Betadine solution was irrigated through the knee along with 3 L of pulse lavage irrigation with Ancef. Periarticular injection was then completed. The patient's knee was brought through a range of motion. Knee was found to be stable to varus valgus stress, the patella was tracking centrally with full range of motion. At this time, a #2 barbed suture was used for closure of the medial parapatellar arthrotomy. Topical tranexamic acid was placed. 2-0 Vicryl was used subcutaneously, Prineo was used for the skin. The patient tolerated the procedure well and was sent to the PACU in stable condition. After this was completed, under sterile technique, 2 mL of 40 mg of Kenalog and 4 mL of 0.25% Marcaine were injected to the left knee. VENTURA /[id number] JIE
== END 2019-03-19 12:48 | disposition home or self-care (01) ==
LOC: JD.MS 06:03 → JD.SDS 06:03
PROVIDERS: ATTEND Orthopaedic Surgery
DX: M17.0 Bilateral primary osteoarthritis of knee (principal); I10 Essential (primary) hypertension; E78.00 Pure hypercholesterolemia, unspecified; F32.9 Major depressive disorder, single episode, unspecified; E03.9 Hypothyroidism, unspecified; M81.0 Age-related osteoporosis without current pathological fracture; Z79.899 Other long term (current) drug therapy
CPT/HCPCS: 20610; 27447; 36415; 73560; 80053; 85027; 87641; 97110; 97112; 97116; 97162; 97165; 97535; A9270; C1776; J0171; J0690; J0697; J1885; J2250; J2270; J2370; J2704; J2795; J3010; J3301; J3370; J3490; J7120; 01402; 64450; J7050